=== PATIENT | male | born 1935 | race Caucasian/White ===

== ENCOUNTER 2016-11-20 08:49 | Outpatient (CLI) | payer MEDICARE, OTHER ==
[2016-11-20] MEDS ORDERED: REGADENOSON 0.4 MG/5 ML DISP.SYRIN IVP ONE (09:30)
== END 2016-11-20 23:59 | disposition home or self-care (01) ==
LOC: NM 08:49
PROVIDERS: ATTEND Internal Medicine Interventional Cardiology
DX: R07.9 Chest pain, unspecified (principal)
CPT/HCPCS: 78452; A9502; J2785

== ENCOUNTER 2017-12-04 08:34 | Outpatient (CLI) | payer MEDICARE, OTHER | END 2017-12-04 23:59 | disposition home or self-care (01) | LOC: NM 08:34 | PROVIDERS: ATTEND Internal Medicine Interventional Cardiology | DX: R07.9 Chest pain, unspecified (principal); R94.39 Abnormal result of other cardiovascular function study; R07.89 Other chest pain | CPT/HCPCS: 78452; A9502 ==

== ENCOUNTER 2021-02-06 13:09 | Outpatient (CLI) | payer MEDICARE, OTHER | END 2021-02-06 23:59 | disposition home or self-care (01) | LOC: US 13:09 | PROVIDERS: ATTEND Internal Medicine Interventional Cardiology | DX: E04.1 Nontoxic single thyroid nodule (principal) | CPT/HCPCS: 76536-TC ==